=== PATIENT | male | born 1945 | race Caucasian/White ===

== ENCOUNTER → 2021-08-07 09:14 | Outpatient (CLI) | payer MEDICARE, OTHER, SELFPAY ==
[2021-08-07 12:11] LABS: COVID19 -Nasal RAPID Negative (Negative)
== END ==
PROVIDERS: Visit Provider Family Medicine Sleep Medicine
DX: Z20.822 Contact with and (suspected) exposure to COVID-19 (principal)
CPT/HCPCS: 87635; C9803

== ENCOUNTER → 2021-08-09 09:37 | Outpatient (CLI) | payer MEDICARE, OTHER, SELFPAY ==
--- NOTE | 2021-08-09 17:34 | DI.NM.S_ITS ---
DATE OF SERVICE: 08/09/2021 PROCEDURE: Exercise perfusion study INDICATION: Second-degree AV block. CARDIAC STRESS: The patient underwent exercise perfusion study under the supervision of an attending staff. He walked on Edu protocol for 3 minutes and achieved 94 percent of target heart rate. Maximum heart rate achieved, 133 beats per minute. Baseline blood pressure 120/78 mmHg. Peak blood pressure 194/100 mmHg. The patient achieved 4.6 METs of workload and functional aerobic impairment positive 37 percent. Baseline rhythm was sinus with borderline first- degree AV block, as well as intermittent PACs. During stress, there was an artifact, however, no convincing ischemic changes or significant arrhythmias seen. In recovery, the patient developed PACs and PVCs again. No ventricular tachycardia or obvious atrial fibrillation. No chest pain, however had shortness of breath. RAW DATA: The patient's weight is 250 pounds. There is a significantly increased subdiaphragmatic activity affecting the inferior border of the heart. GATED STUDY: Resting LV ejection fraction is 70 percent and stress LV ejection fraction 73 percent without any obvious wall motion abnormalities. Resting end- diastolic volume 98 mL. TID ratio 0.91, which is within normal limits. Lung/heart ratio 0.29, which is within normal limits. MYOCARDIAL PERFUSION SCAN: Stress supine, resting supine and stress prone images were compared to each other. There appears to be predominantly fixed moderate-size mild to moderately decreased perfusion of inferior wall extending into the distal inferolateral wall without any significant reversible ischemia. In addition to that, the stress supine and resting supine has mildly decreased perfusion of basal anterior wall as well, which got resolved during the stress prone images. CONCLUSION: This is an abnormal myocardial perfusion study with a small to moderate size, mild to moderately decreased perfusion of inferior wall extending into the distal inferolateral wall, which is predominantly fixed. No obvious reversible ischemia. However, the patient's weight is 250 pounds. During raw data, there was significant subdiaphragmatic activity seen affecting the inferior border of the heart. On gated study, preserved left ventricular function with normal wall motion. 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 Poor exercise tolerance. The patient developed shortness of breath. Maximum blood pressure 194/100 mmHg. BABS positive 37 percent. Baseline intermittent premature atrial contractions, seen in recovery as well along with premature ventricular contractions. No obvious atrial fibrillation or ventricular tachycardia. Correlate clinically. Christiano RoN: [id number] RAFIQ/alvaro/danika doc#: [id number]/job#: [id number] dd: 08/09/2021 16:51:00 dt: 08/09/2021 17:25:00 DICTATING MD/COPIES TO: Josh Benitez MD COPIES MNE: ESTEPHANIA;
== END ==
PROVIDERS: PCP Physician Assistant Medical; Referring Provider Internal Medicine Cardiovascular Disease; Visit Provider Internal Medicine Cardiovascular Disease
DX: I44.1 Atrioventricular block, second degree (principal); R94.39 Abnormal result of other cardiovascular function study
CPT/HCPCS: 78452; 93017; A9502